=== PATIENT | female | born 1985 ===

== ENCOUNTER 2020-11-09 07:33 | Emergency (ER) | payer BC ==
[~2020-11-09] VITALS: Ht 157.5 cm; Wt 61.4 kg
[2020-11-09 07:38] VITALS: BP 136/86; Ht 157.5 cm; Wt 61.4 kg
[2020-11-09] MEDS ORDERED: ALBUTEROL SULF8.5 GM INH (07:39)
[2020-11-09 08:03] LABS: HCG URINE NEGATIVE (NEGATIVE)
[2020-11-09] MEDS ORDERED: IBUPROFEN800 MG PO (08:35)
[2020-11-09] MEDS ORDERED: CYCLOBENZAPRINE10 MG PO (08:35)
[2020-11-09] MEDS ORDERED: ACETAMINOPHEN500 M1 PO (08:35)
== END 2020-11-09 08:48 | disposition home or self-care (01) ==
LOC: D.ER 07:33
PROVIDERS: Family Medicine
DX: R51.9 Headache, unspecified (principal); M79.10 Myalgia, unspecified site; M54.2 Cervicalgia; J45.909 Unspecified asthma, uncomplicated; Z72.0 Tobacco use